=== PATIENT | female | born 1955 | race Caucasian/White ===

== ENCOUNTER 2019-10-09 10:13 | Observation (INO) | payer OTHER, SELFPAY ==
[2019-10-09] VITALS (7 sets, daily range): BP systolic 164–191; BP diastolic 74–101; PULSE 84–107; RESP 16–21; TEMP 36.4–36.9; O2SAT 94–98; BMI 35.6; BMI 45.6
--- NOTE | 2019-10-09 10:55 | RAD_ITS ---
STUDY: X-RAY - LEFT TIBIA AND FIBULA REASON FOR EXAM: Female, 63 years old. INFECTION TECHNIQUE: 2 view(s) of the tibia and fibula were obtained. COMPARISON: None. FINDINGS: Normal visualized tibia. Normal visualized fibula. The soft tissue structures are unremarkable, no subcutaneous emphysema noted.. RAD/Tibia & Fibula 2 Views IMPRESSION: Normal x-ray examination of the tibia and fibula. Electronically Signed: Yousuf Kennedy MD at 12:19 EST , Service support ,
--- NOTE | 2019-10-09 10:56 | ED.DCSUM_ITS ---
History of Present Illness Chief Complaint: Lower Extremity Injury Detail of Chief Complaint: Left leg infection Informant: Patient Onset: Days - 9 days Current Severity: Moderate Maximum Severity: Moderate Narrative: Patient presents with left leg swelling and skin sloughing. She states she noted a blisterlike lesion 9 days ago. It is progressed in size. She does have serosanguineous drainage. She states when she initially noticed the wound 9 days ago she also had GI symptoms including fever, nausea, vomiting, and diarrhea. Those symptoms seem to subside within 36 hours. She denies past medical history. She denies being diabetic. Past Medical History - Allergies and Home Meds Allergies/Adverse Reactions: Allergies alcohol Allergy (Verified 10/09/19 10:14) Hives Primary Care Physician: Sharad Guerra III, MD [Primary Care Provider] - Past Medical History: None Lives: Spouse/ Significant Other Smoking Status: Never smoker Review of Systems General: Reports: Fever Eyes: Denies: Visual changes - bilaterally ENT: Denies: Bilateral ear pain Cardiovascular: Denies: Chest pain Respiratory: Denies: Dyspnea Gastrointestinal: Denies: Abdominal pain, Nausea, Vomiting, Diarrhea Skin: Reports: Wounds Neurological: Denies: Headache, Weakness Hematologic: Denies: Easy bruising, Easy bleeding Allergy: Denies: Uticaria Physical Exam Vital Signs/Narrative: Vital Signs Temp Pulse Resp BP Pulse Ox 10/09/19 10:14 97.6 F L 107 H 17 164/95 H 96 Inital Vital Signs reviewed: Yes General: Well nourished, Well developed Head: Normocephalic ENT: Moist mucous membranes Neck: Supple Cardiovascular: Regular rate, Regular rhythm Respiratory: No distress, CTA bilaterally Abdomen: Soft, Nontender Skin: - - Left leg edema with skin sloughing circumferentially around the lower leg. Foot itself appears unremarkable. Strong distal pulses are noted. Neurological: Alert, Oriented x3 Psychological: Normal affect Diagnostic/Tx/Re-eval Impressions Tibia/Fibula X-Ray 10/09/19 10:55 IMPRESSION: Normal x-ray examination of the tibia and fibula. Electronically Signed: Yousuf Kennedy MD at 12:19 EST , Service support , 10/09/19 10:55 Tibia & Fibula 2 Views [RAD] Stat Laboratory Results 10/09/19 10/09/19 10/09/19 11:20 11:20 11:20 WBC 10.1 RBC 4.78 Hgb 14.4 Hct 43.4 MCV 90.8 MCH 30.1 MCHC 33.2 RDW Std Deviation 42.1 RDW Coeff of Agnieszka 12.7 Plt Count 387 MPV 8.7 Immature Gran % (Auto) 0.400 Neut % (Auto) 76.2 H Lymph % (Auto) 16.3 L [place] % (Auto) 6.1 Eos % (Auto) 0.9 Baso % (Auto) 0.1 Absolute Neuts (auto) 7.7 Absolute Lymphs (auto) 1.65 Nucleated RBC % 0 Sodium 141 Potassium 4.0 Chloride 107 Carbon Dioxide 27.0 Anion Gap 7 BUN 15 Creatinine 1.08 H Estim Creat Clear Calc 42.17 Est GFR (MDRD) Af Amer 66 Est GFR (MDRD) Non-Af 54 L BUN/Creatinine Ratio 13.9 Glucose 91 Lactic Acid 1.8 Calcium 9.5 - Medical Decision Making Patient was given Zosyn and vancomycin for skin infection on arrival. On repeat evaluation she is resting comfortably. Labs are reassuring at this time, however patient does have a large area of skin ulceration and sloughing. I do feel she should be at least observed overnight for antibiotics and appropriate wound care. I will speak with the hospitalist. ED Disposition - Plan for ED Patient: Disposition: Acute Care [facility] Diagnosis: Skin ulcer of left lower leg Referrals: Sharad Guerra III, MD [Primary Care Provider] -
[2019-10-09 11:38] LABS: Absolute Lymphocyte Count 1.65 X10^3/uL (0.83-4.51); Absolute Neutrophil Count 7.7 X10^3/uL (2.0-7.7); Basophil# 0.01 X10^3/uL; Basophil% 0.1 % (0-1); Eosinophil# 0.09 X10^3/uL; Eosinophils% 0.9 % (0-5); Hematocrit 43.4 % (37-47); Hemoglobin 14.4 g/dL (12.0-15.0); Lymphocyte # 1.65 X10^3/ul (4.0); Lymphocyte % 16.3 % (19-41); Mean Corp Hgb Conc 33.2 g/dL (32-36); Mean Corpuscular Hgb 30.1 pg (27.0-32.0); Mean Corpuscular Volume 90.8 fL (81-99); Mean Platelet Vol. 8.7 fl (6.2-12.0); Monocyte# 0.62 X10^3/uL; Monocyte% 6.1 % (0-10); NRBC Flagged by Analyzer 0 % (0-5); Neutrophil # 7.71 X10^3/uL (2.7-7.7); Neutrophil % 76.2 % (47-70); Platelet Count 387 K/mm3 (150-450); RBC Distribution Width CV 12.7 % (11.6-14.6); RBC Distribution Width SD 42.1 fl (35.1-43.9); Red Blood Count 4.78 M/mm3 (4.2-5.4); White Blood Count 10.1 K/mm3 (4.4-11.0)
[2019-10-09 11:50] LABS: Anion Gap 7 (5-15); BUN 15 mg/dL (7-18); BUN/Creat Ratio 13.9 RATIO (10-20); Calcium,Total 9.5 mg/dL (8.5-10.1); Chloride 107 mmol/L (98-107); Creatinine, Serum 1.08 mg/dL (0.55-1.02); EST Glomerular Filtration Rate 54 mL/min (>60); Est Glom Filt Rate - Afr Amer 66 mL/min (>60); Estimated Creatinine Clearance 42.17 ml/min; Glucose 91 mg/dL (74-106); Sodium Level 141 mmol/L (136-145)
[2019-10-09] MEDS: 0.9% Normal Saline 1,000 ML 150 ML IV ×2 (11:50→18:30)
[2019-10-09 12:09] LABS: Lactic Acid 1.8 mmol/L (0.4-1.9)
--- NOTE | 2019-10-09 13:09 | PCM.HP.STD ---
Problem List (1) Skin ulcer of left lower leg Status: Acute (2) BMI over 35 Status: Chronic History of Present Illness Date of Admission: 10/09/19 Chief Complaint: Blistering and ulceration involving the left lower extremity The patient is a 63 year old F in relatively good health who presented with blistering and ulceration involving the left lower extremity. Per patient her symptoms started a couple of days prior to admission. She was down with flulike symptoms and had nausea, vomiting diarrhea as well as subjective fever and chills. She did notice a blister involving the lateral aspect of her left lower extremity. This has since progressed resulting in ulceration circumferentially as well as some warmth and swelling. Was seen in the emergency department and assessment of cellulitis made admitted to regular nursing floor for further management. Past Medical History Past Medical History (Chronic Problems): Chronic Problems BMI over 35 (Chronic) Allergies alcohol Allergy (Verified 10/09/19 10:14) Hives Home Medications: Ambulatory Orders Medication Instructions Recorded NK 10/09/19 Lives: Spouse/ Significant Other Smoking Status: Never smoker - *Family History Maternal History Items: Heart Disease Paternal History Items: Heart Disease Review of Systems Constitutional: Reports: Fever. Denies: Anorexia, Chills, Night Sweats, Weight Change HEENT: Denies: Head Aches, Sinus Congestion, Sinus Drainage Cardiovascular: Denies: Chest Pain, Orthopnea, Palpitations, Paroxysmal Noc. Dyspnea Respiratory: Denies: Cough, Shortness of breath at rest, Shortness of breath upon exertion, Sputum production Gastrointestinal: Reports: Abdominal Pain, Diarrhea, Nausea, Vomiting. Denies: Hematemesis, Hematochezia, Melena Genitourinary: Denies: Dysuria, Frequency, Hematuria, Urgency Musculoskeletal: Denies: Joint Pain, Joint Tenderness Skin: Reports: Rash, Skin Changes Neurological: Denies: Focal weakness, Numbness, Tingling Psychiatric: Denies: Homicidal Ideations, Suicidal Ideations Hematologic/ Lymphatic: Denies: Easy Bruising, Easy Bleeding VTE Information - Inpt Only VTE Present on Admission: No VTE Mechan Device Prophylaxis: None VTE Pharm Prophylaxis ordered?: Yes Patient Problems: Active and Suspected Problems Skin ulcer of left lower leg (Acute) Objective: GENERAL: cooperative HEENT: Atraumatic; EYES; Anicteric, Normal Conjunctiva NECK; supple, normal thyroid, RESPIRATORY: Diminished to auscultation CARDIOVASCULAR: Regular S1 S2, GI: soft, normoactive bowel sounds, : No Renal angle tenderness; EXTREMITIES: ulceration circumferentially involving the distal third of the left lower extremity with surrounding areas of erythema and warmth MUSCULOSKELETAL: no muscle waisting NEURO: Awake; no lateralizing signs. SKIN: As described above PSYCH; Flat affect - Physical Exam Vitals/I&O's: Vital Signs Temp Pulse Resp BP Pulse Ox 97.6 F L 84 21 H 174/92 H 94 10/09/19 10:14 10/09/19 12:13 10/09/19 12:13 10/09/19 12:13 10/09/19 12:13 Oxygen Delivery Method Room Air Weight: 88.451 kg Body Mass Index (BMI) 35.6 Intake and Output for Last 24 Hours 10/07/19 10/08/19 10/09/19 23:59 23:59 23:59 Intake Total 100 / 100 Balance 100 / 100 Laboratory Results 10/09/19 11:20: WBC 10.1, RBC 4.78, Hgb 14.4, Hct 43.4, MCV 90.8, MCH 30.1, MCHC 33.2, RDW Std Deviation 42.1, RDW Coeff of Agnieszka 12.7, Plt Count 387, MPV 8.7, Immature Gran % (Auto) 0.400, Neut % (Auto) 76.2 H, Lymph % (Auto) 16.3 L, [place] % (Auto) 6.1, Eos % (Auto) 0.9, Baso % (Auto) 0.1, Absolute Neuts (auto) 7.7, Absolute Lymphs (auto) 1.65, Nucleated RBC % 0 10/09/19 11:20: Sodium 141, Potassium 4.0, Chloride 107, Carbon Dioxide 27.0, Anion Gap 7, BUN 15, Creatinine 1.08 H, Estim Creat Clear Calc 42.17, Est GFR (MDRD) Af Amer 66, Est GFR (MDRD) Non-Af 54 L, BUN/Creatinine Ratio 13.9, Glucose 91, Calcium 9.5 10/09/19 11:20: Lactic Acid 1.8 Current Medications Sodium Chloride () 1,000 mls @ 150 mls/hr IV .[id number] [facility] Last Admin: 10/09/19 11:50 Dose: 150 mls/hr Documented by: Assessment/Plan All Active Problems Skin ulcer of left lower leg (Acute) Patient is a 63-year-old lady presenting with ulceration, blistering and erythema and warmth involving the left lower extremity 1. Cellulitis involving the left lower extremity ?Patient admitted to regular nursing floor started on broad-spectrum antibiotic therapy vancomycin and Zosyn after cultures have been sent. Consult was also placed to infectious disease. Given the extent of patient ulceration consult was also placed to the wound care nurse 2. Recent acute viral gastroenteritis ?Resolved 3. Obesity with BMI of 35.7 ?Weight loss advised 4. DVT prophylaxis ~ on enoxaparin Code Visit Inpatient E&M: 55069 Init Hosp L2
--- NOTE | 2019-10-09 15:45 | PCM.RX.CS ---
Consult Pharmacy has been consulted to manage selected antiobiotic: Vancomycin Type of Consult: New start Suspected Infection: Skin/Soft tissue Prior Doses of Antibiotics Received/Current Regimen: Received 1250mg iv x 1 in ER. Labs: Sodium 141 mmol/L (136-145) 10/09/19 11:20 Potassium 4.0 mmol/L (3.5-5.1) 10/09/19 11:20 Chloride 107 mmol/L (98-107) 10/09/19 11:20 Carbon Dioxide 27.0 mmol/L (21.0-32.0) 10/09/19 11:20 Anion Gap 7 (5-15) 10/09/19 11:20 BUN 15 mg/dL (7-18) 10/09/19 11:20 Creatinine 1.08 mg/dL (0.55-1.02) H 10/09/19 11:20 Est GFR (MDRD) Af Amer 66 mL/min (>60) 10/09/19 11:20 Est GFR (MDRD) Non-Af 54 mL/min (>60) L 10/09/19 11:20 BUN/Creatinine Ratio 13.9 RATIO (10-20) 10/09/19 11:20 Glucose 91 mg/dL (74-106) 10/09/19 11:20 Weight used for dosin kg Estimated Creatinine Clearance: ~42ml/min Goal Trough: 15-20 mcg/mL Pharmacy Plan for Drug Dosing: Will begin 1gm iv q12h per pharmacokinetic protocol. Trough level ordered for 10.10.19. Pharmacy Service will continue to monitor and adjust dosing as required. Follow-Up Labs: Trough Vancomycin - 10.10.19 @2330 before 2400 dose
--- NOTE | 2019-10-09 16:13 | VDLE_ITS ---
Reason For Study: Swelling Procedure LEFT Exam performed portable in patient room. GSV is normal. Calf veins only visualized at prox due to CFV is compressible, spontaneous, phasic, bandage. competent, and demonstrates normal A preliminary report was called and/or faxed augmentation. to PCU. FV is compressible, spontaneous, phasic, competent and demonstrates normal augmentation. POP V is compressible, spontaneous, phasic, competent and demonstrates normal augmentation. T/P Trunk is compressible. PTV is compressible. LT PerV is compressible. Interpretation Summary Deep veins of the left lower extremity are patent and compressible segmentally. There is no evidence of left lower extremity deep vein thrombosis. Valvular competence appears intact within the proximal deep venous system on the left . The left great saphenous vein appears patent and compressible segmentally. Ordering Physician: Nino Pretty Referring Physician: DARBY Guerra M.D. Performed By: Marilin Lawrence RVT
--- NOTE | 2019-10-09 16:14 | CON.PCM_ITS ---
Problem List (1) Skin ulcer of left lower leg Status: Acute Reason for Consult: cellulitis Consulted by: Dr. Duncan History of Present Illness: The patient is a 63 year old F with minimal PMH, presented with 8-10 days of L gusman/calf redness, warm, and swelling. Sx started when she had GI illness with fever, n/v/d. Was in a chair for a day, and L gusman developed large blister which popped. Now with large open area, clear yellow drainage. No further fever or GI symptoms. No recent abx. No prior h/o skin infection or MRSA. Admitted from ED, on vanc/zosyn. Minimal pain. Full ROS performed and neg except as noted above. - Medical History Past Medical History (Chronic Problems): Chronic Problems BMI over 35 (Chronic) Allergies/Adverse Reactions: Allergies alcohol Allergy (Verified 10/09/19 10:14) Hives Home Medications: Ambulatory Orders Medication Instructions Recorded Multivitamin [Once Daily] 1 tab PO DAILY 10/09/19 Naproxen Sodium [Aleve] 220 mg PO BID PRN PRN 10/09/19 - Social History Tobacco Use: non-smoker Vital Signs Temp Pulse Resp BP Pulse Ox 98.3 F 84 16 191/101 H 98 10/09/19 14:06 10/09/19 14:06 10/09/19 14:06 10/09/19 14:06 10/09/19 14:50 Oxygen Delivery Method Room Air Weight: 113 kg Body Mass Index (BMI) 45.6 Laboratory Tests Past 24 Hrs 10/09/19 10/09/19 10/09/19 11:20 11:20 11:20 WBC 10.1 RBC 4.78 Hgb 14.4 Hct 43.4 MCV 90.8 MCH 30.1 MCHC 33.2 RDW Std Deviation 42.1 RDW Coeff of Agnieszka 12.7 Plt Count 387 MPV 8.7 Immature Gran % (Auto) 0.400 Neut % (Auto) 76.2 H Lymph % (Auto) 16.3 L [place] % (Auto) 6.1 Eos % (Auto) 0.9 Baso % (Auto) 0.1 Absolute Neuts (auto) 7.7 Absolute Lymphs (auto) 1.65 Nucleated RBC % 0 Sodium 141 Potassium 4.0 Chloride 107 Carbon Dioxide 27.0 Anion Gap 7 BUN 15 Creatinine 1.08 H Estim Creat Clear Calc 42.17 Est GFR (MDRD) Af Amer 66 Est GFR (MDRD) Non-Af 54 L BUN/Creatinine Ratio 13.9 Glucose 91 Lactic Acid 1.8 Calcium 9.5 S.aureus Protein A PCR MRSA (PCR) 10/09/19 14:50 WBC RBC Hgb Hct MCV MCH MCHC RDW Std Deviation RDW Coeff of Agnieszka Plt Count MPV Immature Gran % (Auto) Neut % (Auto) Lymph % (Auto) [place] % (Auto) Eos % (Auto) Baso % (Auto) Absolute Neuts (auto) Absolute Lymphs (auto) Nucleated RBC % Sodium Potassium Chloride Carbon Dioxide Anion Gap BUN Creatinine Estim Creat Clear Calc Est GFR (MDRD) Af Amer Est GFR (MDRD) Non-Af BUN/Creatinine Ratio Glucose Lactic Acid Calcium S.aureus Protein A PCR Pending MRSA (PCR) Pending - Other Studies Radiology: [] reviewed Other Studies: [] Route of nutrition/ use of supplements: [] Nutritional Intake: [] IV Site: [] Jimenez Catheter: [] - Physical Exam General: Alert, Oriented x3, Cooperative, No apparent distress HEENT: Atraumatic, PERRLA, EOMI Neck: Supple, No Nodes Lungs: Clear to auscultation, Normal air movement Cardiovascular: Regular rate, Regular Rhythm, No murmurs Abdomen: Soft, Non Tender, Non-Distended Extremities: Edema Skin: Ulcer/ Wound - large shallow wound on L gusman, serous drainage. Surrounding warmth and erythema. IV Site: Peripheral, without redness Musculoskeletal: No Tenderness to Palpation of Joints or Extremities Neurological: Cranial nerves II-XII grossly intact - Assessment/Plan Antibiotics: [] Assessment/Plan: [] Active and Suspected Problems Skin ulcer of left lower leg (Acute) Surrounding cellulitis after large bulla formation. Wound cx and mrsa pcr pending. No fever, no pain, no leukocytosis. Will order venous doppler. Appe ars to be doing well clinically, would benefit from wound care as an outpt. Narrow abx to cefazolin, plan on short course of po at discharge. Will follow, thank you.
[2019-10-09 17:05] LABS: M R Staph aureus DNA By PCR Negative (Negative); Probe Check PASS; Specimen Processing Control PASS; Staph aureus DNA By PCR POSITIVE (Negative)
[2019-10-09] MEDS: Cefazolin 1 GM/50 ML BAG IV (21:45)
[2019-10-10] MEDS: 0.9% Normal Saline 1,000 ML 150 ML IV (01:33)
[2019-10-10] MEDS: Acetaminophen 325 MG Tablet 650 MG PO ×2 (01:47→13:50)
[2019-10-10 01:51] VITALS: BP 160/84; PULSE 96; RESP 18; TEMP 37.1; O2SAT 94
[2019-10-10] MEDS: Cefazolin 1 GM/50 ML BAG IV ×3 (06:10→22:57)
[2019-10-10 07:38] LABS: Absolute Lymphocyte Count 1.76 X10^3/uL (0.83-4.51); Absolute Neutrophil Count 5.9 X10^3/uL (2.0-7.7); Basophil# 0.01 X10^3/uL; Basophil% 0.1 % (0-1); Eosinophil# 0.13 X10^3/uL; Eosinophils% 1.5 % (0-5); Hematocrit 37.1 % (37-47); Hemoglobin 12.3 g/dL (12.0-15.0); Lymphocyte # 1.76 X10^3/ul (4.0); Mean Corp Hgb Conc 33.2 g/dL (32-36); Mean Corpuscular Hgb 30.8 pg (27.0-32.0); Mean Corpuscular Volume 92.8 fL (81-99); Mean Platelet Vol. 8.2 fl (6.2-12.0); Monocyte# 0.59 X10^3/uL; NRBC Flagged by Analyzer 0 % (0-5); Neutrophil # 5.87 X10^3/uL (2.7-7.7); Platelet Count 283 K/mm3 (150-450); RBC Distribution Width CV 12.7 % (11.6-14.6); RBC Distribution Width SD 43.2 fl (35.1-43.9); White Blood Count 8.4 K/mm3 (4.4-11.0)
[2019-10-10 07:49] LABS: Anion Gap 3 (5-15); BUN 10 mg/dL (7-18); BUN/Creat Ratio 11.5 RATIO (10-20); Calcium,Total 8.5 mg/dL (8.5-10.1); Chloride 112 mmol/L (98-107); Creatinine, Serum 0.87 mg/dL (0.55-1.02); EST Glomerular Filtration Rate 70 mL/min (>60); Est Glom Filt Rate - Afr Amer 85 mL/min (>60); Estimated Creatinine Clearance 52.35 ml/min; Glucose 106 mg/dL (74-106); Sodium Level 144 mmol/L (136-145)
[2019-10-10 07:58] VITALS: O2SAT 97
[2019-10-10 08:13] VITALS: BP 190/82; PULSE 83; RESP 18; TEMP 36.8; O2SAT 95
[2019-10-10] MEDS: Enoxaparin 40 MG/0.4 ML Syringe SC (09:39)
--- NOTE | 2019-10-10 10:45 | PN_ITS ---
Patient Problems: Active and Suspected Problems Skin ulcer of left lower leg (Acute) Reason for Visit: Follow-up left lower extremity cellulitis Subjective: Patient is a 63-year-old lady presenting with ulceration, blistering and erythema and warmth involving the left lower extremity Patient MRSA PCR came back negative she was however positive for staph. Seen in consultation by Dr. Pretty with ID recommended de-escalating antibiotics to cefazolin. Objective: GENERAL: cooperative HEENT: Atraumatic; EYES; Anicteric, Normal Conjunctiva NECK; supple, normal thyroid, RESPIRATORY: Diminished to auscultation CARDIOVASCULAR: Regular S1 S2, GI: soft, normoactive bowel sounds, : No Renal angle tenderness; EXTREMITIES: ulceration circumferentially involving the distal third of the left lower extremity with surrounding areas of erythema and warmth MUSCULOSKELETAL: no muscle waisting NEURO: Awake; no lateralizing signs. SKIN: As described above PSYCH; Flat affect Vitals/I&O's: Vital Signs Temp Pulse Resp BP Pulse Ox 98.3 F 83 18 190/82 H 95 10/10/19 08:13 10/10/19 08:13 10/10/19 08:13 10/10/19 08:13 10/10/19 08:13 Oxygen Delivery Method Room Air Weight: 113 kg Body Mass Index (BMI) 45.6 Intake and Output for Last 24 Hours 10/08/19 10/09/19 10/10/19 23:59 23:59 23:59 Intake Total 1665 / 1665 1742.5 / 1742.5 Balance 1665 / 1665 1742.5 / 1742.5 Laboratory Results 10/09/19 11:20: WBC 10.1, RBC 4.78, Hgb 14.4, Hct 43.4, MCV 90.8, MCH 30.1, MCHC 33.2, RDW Std Deviation 42.1, RDW Coeff of Agnieszka 12.7, Plt Count 387, MPV 8.7, Immature Gran % (Auto) 0.400, Neut % (Auto) 76.2 H, Lymph % (Auto) 16.3 L, [place] % (Auto) 6.1, Eos % (Auto) 0.9, Baso % (Auto) 0.1, Absolute Neuts (auto) 7.7, Absolute Lymphs (auto) 1.65, Nucleated RBC % 0 10/09/19 11:20: Sodium 141, Potassium 4.0, Chloride 107, Carbon Dioxide 27.0, Anion Gap 7, BUN 15, Creatinine 1.08 H, Estim Creat Clear Calc 42.17, Est GFR (MDRD) Af Amer 66, Est GFR (MDRD) Non-Af 54 L, BUN/Creatinine Ratio 13.9, Glucose 91, Calcium 9.5 10/09/19 11:20: Lactic Acid 1.8 10/09/19 14:50: S.aureus Protein A PCR POSITIVE H, MRSA (PCR) Negative 10/10/19 07:25: WBC 8.4, RBC 4.00 L, Hgb 12.3, Hct 37.1, MCV 92.8, MCH 30.8, MCHC 33.2, RDW Std Deviation 43.2, RDW Coeff of Agnieszka 12.7, Plt Count 283, MPV 8.2, Immature Gran % (Auto) 0.400, Neut % (Auto) 70.0, Lymph % (Auto) 21.0, [place] % (Auto) 7.0, Eos % (Auto) 1.5, Baso % (Auto) 0.1, Absolute Neuts (auto) 5.9, Absolute Lymphs (auto) 1.76, Nucleated RBC % 0 10/10/19 07:25: Sodium 144, Potassium 4.0, Chloride 112 H, Carbon Dioxide 29.0, Anion Gap 3 L, BUN 10, Creatinine 0.87, Estim Creat Clear Calc 52.35, Est GFR (MDRD) Af Amer 85, Est GFR (MDRD) Non-Af 70, BUN/Creatinine Ratio 11.5, Glucose 106, Calcium 8.5 Current Medications Acetaminophen (Tylenol) 650 mg PO Q6H PRN PRN PRN Reason: Pain Score 1-3/Temp > 100.7 F Last Admin: 10/10/19 01:47 Dose: 650 mg Documented by: Al Hydroxide/Mg Hydroxide (Mylanta Ii) 30 ml PO Q6H PRN PRN PRN Reason: Gastric Burning Enoxaparin Sodium (Lovenox) 40 mg SC DAILY REMY Last Admin: 10/10/19 09:39 Dose: 40 mg Documented by: Sodium Chloride () 250 mls @ 15 mls/hr IV .[id number] PRN PRN Reason: Saline Flush Cefazolin Sodium () 1 gm in 50 mls @ 100 mls/hr IV Q8 REMY Last Infusion: 10/10/19 06:40 Dose: Infused Documented by: Labetalol HCl (Trandate) 10 mg IV Q4H PRN PRN PRN Reason: SBP > 160 Last Admin: 10/10/19 09:39 Dose: 10 mg Documented by: Magnesium Hydroxide (Milk Of Magnesia) 30 ml PO DAILY PRN PRN PRN Reason: Constipation Melatonin (Melatonin) 3 mg PO QHS PRN PRN PRN Reason: INSOMNIA Nutritional Formula (Lactose Free) (Ensure Enlive) 120 ml PO 4X/DAY REMY Last Admin: 10/10/19 09:39 Dose: Not Given Documented by: Ondansetron HCl (Zofran) 4 mg IV Q8H PRN PRN PRN Reason: NAUSEA/VOMITING Oxycodone HCl (Oxyir) 5 mg PO Q4H PRN PRN PRN Reason: Pain Score 4-5/10 Oxycodone HCl (Oxyir) 10 mg PO Q4H PRN PRN PRN Reason: Pain Score 6-10/10 Promethazine HCl (Phenergan) 25 mg IM Q6H PRN PRN PRN Reason: Breakthrough nausea/vomiting Sodium Chloride () 10 - 40 ml IV UD PRN PRN Reason: SALINE FLUSH STROKE Vital Signs/Narrative: Vital Signs Temp Pulse Resp BP Pulse Ox 10/10/19 08:13 98.3 F 83 18 190/82 H 95 10/10/19 07:58 97 Medical Necessity - Tobacco Use Smoking Status: Never smoker Assessment/Plan All Active Problems Skin ulcer of left lower leg (Acute) Patient is a 63-year-old lady presenting with ulceration, blistering and erythema and warmth involving the left lower extremity 1. Cellulitis involving the left lower extremity ?Patient admitted to regular nursing floor started on broad-spectrum antibiotic therapy vancomycin and Zosyn after cultures have been sent. Consult was also placed to infectious disease. Given the extent of patient ulceration consult was also placed to the wound care nurse ?10/10/2019Patient MRSA PCR came back negative she was however positive for staph. Seen in consultation by Dr. Pretty with ID recommended de-escalating antibiotics to cefazolin. Bilateral venous duplex obtained came back negative for DVT. Patient yet to be evaluated by wound care. 2. Recent acute viral gastroenteritis ?Resolved 3. Obesity with BMI of 35.7 ?Weight loss advised 4. DVT prophylaxis ~ on enoxaparin Code Visit Inpatient E&M: 68508 Subs Hosp L2
--- NOTE | 2019-10-10 11:46 | NURSING ---
wound photo: left lower leg
--- NOTE | 2019-10-10 11:48 | NURSING ---
wound photo: left lower leg (medial view)
[2019-10-10] MEDS: 0.9% Saline Lock 10 ML Syringe IV (13:43)
[2019-10-10 13:51] VITALS: BP 166/76; PULSE 84; RESP 18; TEMP 37.4; O2SAT 97
--- NOTE | 2019-10-10 14:40 | CASEMGMT ---
RN CM FLORIST HELPER CM to room to meet with patient for initial transition planning/care coordination assessment. RN ADRIANE introduced self and role at [facility]. Pt voices understanding and consents to assessment at this time. Pt resting in bed in no distress at this time. @ bedside. Pt is A/O at this time and answers all questions appropriately. Care providers, pharmacy, and demographics verified/updated at this time. PCP: Dr Peter Guerra Specialists: None Preferred Pharmacy: [facility] Insurance: [facility] Prescription Benefit: [employer] Living Will/HPOA: Has both LW and Healthcare POA, who is her , Guillermo. LNOK: . Living Arrangements: Lives with her in 2 story home w/basement. Able to navigate the stairs well with her cane. States is independent w/ADL's. and pt share home mgmt tasks. is supportive and able to help as needed. Transportation: Pt states drives self and states no transportation concerns at this time. will drive pt home @ discharge. DME: States has the following DME: cane, rails/grab bars. Recently put in a walk-in shower. Denies needs of shower chair at this time. Pt states no need for further DME at this time. HHC/SNF: No history of either, denies needs, and no needs identified. Pt wishes to return home and states has no concerns with going home at time of discharge. CM to follow for any discharge planning/needs. Pt/ voices no concerns/needs at this time. Advised them to ask for CM if any questions/concerns/needs arise. They voice understanding. PLAN: Home w/spousal support and discharge plans in place. states is willing/able to learn how to do dressing changes. Timmy LEBRONN KERI FORREST
[2019-10-10 16:48] VITALS: BP 156/85; PULSE 78; RESP 16; TEMP 37.4; O2SAT 96
[2019-10-10 22:45] VITALS: BP 160/87; PULSE 84; RESP 18; TEMP 36.9; O2SAT 97
[2019-10-11] MEDS: Acetaminophen 325 MG Tablet 650 MG PO (03:15)
[2019-10-11 04:12] VITALS: BP 180/88; PULSE 80; RESP 18; TEMP 36.9; O2SAT 97
[2019-10-11] MEDS: Cefazolin 1 GM/50 ML BAG IV (05:26)
[2019-10-11 05:30] VITALS: BP 171/83; PULSE 72; RESP 18; TEMP 37.1; O2SAT 96
[2019-10-11 07:54] VITALS: BP 189/84; PULSE 80; RESP 18; TEMP 36.8; O2SAT 97
[2019-10-11 07:56] VITALS: O2SAT 96
--- NOTE | 2019-10-11 10:02 | PCM.DC ---
- Discharge Diagnoses Current Active Problems: Current Active and Chronic Problems Skin ulcer of left lower leg (Acute) BMI over 35 (Chronic) You will use the following diet at home:: No restrictions Your food should be the consistency of: Regular Discharge Activity: Return to Normal Activity Allergies/Adverse Reactions: Allergies alcohol Allergy (Verified 10/09/19 10:14) Hives Medications to take at Discharge Multivitamin [Once Daily] 1 tab PO DAILY 10/09/19 Naproxen Sodium [Aleve] 220 mg PO BID PRN PRN 10/09/19 Cephalexin [Keflex] 500 mg PO TID #21 cap 10/11/19 The following prescriptions were given: Cephalexin [Keflex] 500 mg PO TID #21 cap Transmission Status: Pending to [facility] Primary Care Physician: Sharad Guerra III, MD [Primary Care Provider] - Please follow up with your Primary Care Physician in: IN 1 WEEK Test Results: Test results from this visit will be discussed in further detail at your follow-up appointment, if applicable. Please Follow Up With: Clinic,Wound When: ON 10/12/2019 FOR DRESSING CHANGES Proposed Discharge Date: 10/11/19
--- NOTE | 2019-10-11 10:04 | PCM.DC.SUM ---
Discharge Date and Diagnosis - Problem List Patient Problems: Active and Suspected Problems Cellulitis (Acute) Skin ulcer of left lower leg (Acute) Date of Admission: 10/09/19 Date of Discharge: 10/11/19 - Primary Discharge Diagnosis Active and Suspected Problems Cellulitis (Acute) Skin ulcer of left lower leg (Acute) - Secondary Discharge Diagnosis Chronic Problems BMI over 35 (Chronic) Hospital Course and Treatment Consultations 10/09/19 13:54 Consult: Onc/Wound/respiratory assistant Routine Comment: Summary of Care Provided: Patient is a 63-year-old lady presenting with ulceration, blistering and erythema and warmth involving the left lower extremity 1. Cellulitis involving the left lower extremity ?Patient admitted to regular nursing floor started on broad-spectrum antibiotic therapy vancomycin and Zosyn after cultures have been sent. Consult was also placed to infectious disease. Given the extent of patient ulceration consult was also placed to the wound care nurse ?10/10/2019Patient MRSA PCR came back negative she was however positive for staph. Seen in consultation by Dr. Pretty with ID recommended de-escalating antibiotics to cefazolin. Bilateral venous duplex obtained came back negative for DVT. Patient yet to be evaluated by wound care. 10/11/2019; patient was discharged home on Keflex she was also instructed to follow-up with wound care center for dressing changes. 2. Recent acute viral gastroenteritis ?Resolved 3. Obesity with BMI of 35.7 ?Weight loss advised 4. DVT prophylaxis ~ on enoxaparin Patient Problems: Active and Suspected Problems Cellulitis (Acute) Skin ulcer of left lower leg (Acute) Objective: GENERAL: cooperative HEENT: Atraumatic; EYES; Anicteric, Normal Conjunctiva NECK; supple, normal thyroid, RESPIRATORY: Diminished to auscultation CARDIOVASCULAR: Regular S1 S2, GI: soft, normoactive bowel sounds, PSYCH; Flat affect - Physical Exam Vitals/I&O's: Vital Signs Temp Pulse Resp BP Pulse Ox 98.3 F 80 18 189/84 H 97 10/11/19 07:54 10/11/19 07:54 10/11/19 07:54 10/11/19 07:54 10/11/19 07:54 Oxygen Delivery Method Room Air Weight: 113 kg Body Mass Index (BMI) 45.6 Intake and Output for Last 24 Hours 10/09/19 10/10/19 10/11/19 23:59 23:59 23:59 Intake Total 1665 / 1665 3050.0 / 3050.0 510 / 510 Balance 1665 / 1665 3050.0 / 3050.0 510 / 510 Microbiology Past 72 Hours 10/09/19 11:30 Blood Culture (Wb) - Anticubital Right Blood Culture - Preliminary No growth in 48 hours. 10/09/19 11:20 Blood Culture (Wb) - Anticubital Left Blood Culture - Preliminary No growth in 48 hours. 10/10/19 04:10 Wound - Leg Gram Stain - Final Current Medications Acetaminophen (Tylenol) 650 mg PO Q6H PRN PRN PRN Reason: Pain Score 1-3/Temp > 100.7 F Last Admin: 10/11/19 03:15 Dose: 650 mg Documented by: Al Hydroxide/Mg Hydroxide (Mylanta Ii) 30 ml PO Q6H PRN PRN PRN Reason: Gastric Burning Enoxaparin Sodium (Lovenox) 40 mg SC DAILY [facility] Last Admin: 10/10/19 09:39 Dose: 40 mg Documented by: Sodium Chloride () 250 mls @ 15 mls/hr IV .[id number] PRN PRN Reason: Saline Flush Cefazolin Sodium () 1 gm in 50 mls @ 100 mls/hr IV Q8 [facility] Last Infusion: 10/11/19 05:56 Dose: Infused Documented by: Labetalol HCl (Trandate) 10 mg IV Q4H PRN PRN PRN Reason: SBP > 160 Last Admin: 10/11/19 04:24 Dose: 10 mg Documented by: Magnesium Hydroxide (Milk Of Magnesia) 30 ml PO DAILY PRN PRN PRN Reason: Constipation Melatonin (Melatonin) 3 mg PO QHS PRN PRN PRN Reason: INSOMNIA Ondansetron HCl (Zofran) 4 mg IV Q8H PRN PRN PRN Reason: NAUSEA/VOMITING Oxycodone HCl (Oxyir) 5 mg PO Q4H PRN PRN PRN Reason: Pain Score 4-5/10 Oxycodone HCl (Oxyir) 10 mg PO Q4H PRN PRN PRN Reason: Pain Score 6-10/10 Promethazine HCl (Phenergan) 25 mg IM Q6H PRN PRN PRN Reason: Breakthrough nausea/vomiting Sodium Chloride () 10 - 40 ml IV UD PRN PRN Reason: SALINE FLUSH Last Admin: 10/10/19 13:43 Dose: 10 ml Documented by: Discharge Diet: No Restrictions Discharge Activity: Return to Normal Activity Home Medications: Medications to take at Discharge Multivitamin [Once Daily] 1 tab PO DAILY 10/09/19 Naproxen Sodium [Aleve] 220 mg PO BID PRN PRN 10/09/19 Cephalexin [Keflex] 500 mg PO TID #21 cap 10/11/19 Following Prescrptions Were Given to Patient: Cephalexin [Keflex] 500 mg PO TID #21 cap Transmission Status: Pending to [facility] Primary Care Physician: Sharad Guerra III, MD [Primary Care Provider] - Please follow up with your Primary Care Physician in: IN 1 WEEK Please Follow Up With: Clinic,Wound When: ON 10/12/2019 FOR DRESSING CHANGES Medical Necessity - Tobacco Use Smoking Status: Never smoker Meaningful Use Info Meaningful Use Diagnoses (Choose all that apply): None applicable Code Visit Inpatient E&M: 80967 Disch Hosp
[2019-10-11 11:00] VITALS: BP 160/80
[2019-10-11 11:15] VITALS: BP 160/80; PULSE 80; RESP 18; TEMP 36.8; O2SAT 97
== END 2019-10-11 11:10 | disposition home or self-care (01) | DRG 603 ==
LOC: ED 12:51 → PCU 10-10 06:04
PROVIDERS: Admitting Provider Internal Medicine; Emergency Provider Emergency Medicine; Family Provider Family Medicine; PCP Family Medicine; Referring Provider Internal Medicine; Visit Provider Internal Medicine
DX: L03.116 Cellulitis of left lower limb (principal); Z68.42 Body mass index [BMI] 45.0-49.9, adult; L97.929 Non-pressure chronic ulcer of unspecified part of left lower leg with unspecified severity; E66.9 Obesity, unspecified; Z87.19 Personal history of other diseases of the digestive system; Z23 Encounter for immunization; B95.61 Methicillin susceptible Staphylococcus aureus infection as the cause of diseases classified elsewhere
CPT/HCPCS: 36415; 73590; 80048; 83605; 85025; 87040; 87070; 87077; 87186; 87205; 87640; 93971; 96361; 96365; 96366; 96367; 96372; 96375; 96376; 97802; 99218; 99251; 99285; J7030; 90686; A4216; G0378; G0463

== ENCOUNTER 2019-10-31 14:30 | Outpatient (RCR) | payer OTHER, SELFPAY ==
[2019-10-09 14:06] VITALS: BMI 45.6
[2019-10-17 14:49] VITALS: BP 197/82; PULSE 111; RESP 16; TEMP 37.1; BMI 44.8
--- NOTE | 2019-10-17 17:17 | HP.PCM_ITS ---
(1) Excoriation of left lower leg Status: Acute Current Visit: Yes Code(s): S80.812A - Abrasion, left lower leg, initial encounter (2) Cellulitis Status: Acute Current Visit: No Qualifiers: Site of cellulitis: extremity Site of cellulitis of extremity: lower extremity Laterality: left Qualified Code(s): L03.116 - Cellulitis of left lower limb Code(s): L03.90 - Cellulitis, unspecified (3) Skin ulcer of left lower leg Status: Resolved Current Visit: No Code(s): L97.929 - Non-pressure chronic ulcer of unspecified part of left lower leg with unspecified severity (4) Bilateral lower extremity edema Status: Chronic Current Visit: Yes Code(s): R60.0 - Localized edema (5) Wound of left foot Status: Resolved Current Visit: No Code(s): S91.302A - Unspecified open wound, left foot, initial encounter History of Present Illness Date of Service: 10/17/19 Chief Complaint: cellulitis and ulcer of left lower leg History of Wound: Patient is a pleasant 63-year-old female who [facility]2019 with her for initial evaluation of left lower extremity swelling and ulceration. Patient presented to the emergency room on 10/09/2019 with complaints of left lower extremity swelling and redness. Patient reports that around 09/30/2019 she developed redness, swelling, and blisterlike lesions on her left lower leg, which were becoming bigger in size. At the time of her emergency room evaluation, she had serosanguineous drainage from her left leg. She also noted that at the time of onset around 09/30/2019 she had symptoms of nausea, vomiting, and diarrhea, as well as fever. The symptoms resolved within 36 hours of onset. Her had recently suffered a GI virus prior to her developing these GI symptoms, and she is unsure if they were related to her left lower extremity symptoms. She was admitted for cellulitis, and was discovered to have a small wound on her right foot, which was believed to be the source of infection. Patient was initially started on broad-spectrum antibiotic therapy with vancomycin and Zosyn. During the course of her admission, patient received wound cultures which were negative for MRSA but positive for staph. Infectious disease (Dr. Pretty) was consulted and antibiotics were changed to cefazolin. Bilateral venous duplex ultrasounds were also obtained which were negative for DVT. Patient was discharged from hospital with oral Keflex prescription, which is nearly completed. She has been applying Xeroform gauze to her left lower extremity ulcers daily, and wrapping with ELIA bandage. The patient denies any recurrence of fever, chills, nausea, vomiting, or diarrhea. Denies any signs of infection, including increasing pain, redness, swelling, or purulent/foul-smelling drainage from affected area. Patient states the erythema and swelling of her left lower extremity has greatly improved and is no longer affecting left foot. Patient denies any other significant medical history. Past Medical History Past Medical History: Chronic Problems Bilateral lower extremity edema (Chronic) BMI over 35 (Chronic) Allergies/Adverse Reactions: Allergies alcohol Allergy (Verified 10/17/19 15:18) Hives Home Medications: Ambulatory Orders Medication Instructions Recorded Multivitamin [Once Daily] 1 tab PO DAILY 10/09/19 Naproxen Sodium [Aleve] 220 mg PO BID PRN PRN 10/09/19 Cephalexin [Keflex] 500 mg PO TID #21 cap 10/11/19 - Family History Maternal Heart Disease Paternal Heart Disease Smoking Status: Former smoker Review of Systems Constitutional: Denies: Chills, Fever, Weight Change Eyes: Denies: Pain, Vision Change HEENT: Denies: Difficulty Hearing, Difficulty Swallowing, Sinus Congestion Cardiovascular: Reports: Edema - Chronic intermittent swelling of bilateral lower extremities with prolonged standing or ambulation. Denies: Chest Pain, Palpitations Respiratory: Denies: Cough, Shortness of Breath, Wheezing Gastrointestinal: Denies: Diarrhea, Nausea, Vomiting Genitourinary: Denies: Dysuria, Hematuria Musculoskeletal: Reports: Leg Pain - Left lower extremity Skin: Reports: Skin Changes - Left lower extremity, Wounds - Left foot wound, healed. Ulcerations of left lower extremity Neurological: Denies: Blurred vision, Slurred speech, Confusion, Focal weakness Endocrine: Denies: Heat/ Cold Intolerance, Polydipsia, Polyuria Hematologic/ Lymphatic: Denies: Easy Bruising, Easy Bleeding - Physical Exam Vital Signs Temp Pulse Resp BP 98.7 F 111 H 16 197/82 H 10/17/19 14:49 10/17/19 14:49 10/17/19 14:49 10/17/19 14:49 General: Alert, Oriented x3, Cooperative, No apparent distress HEENT: Atraumatic, EOMI, Normocephalic Oral: Moist Mucosa Neck: Supple, No JVD, Trachea Midline Lungs: Clear to auscultation, Normal air movement, No rhonchi, No wheeze, No rales Cardiovascular: Regular rate, Regular Rhythm Abdomen: Bowel Sounds Present, Soft, Non Tender, Obese Extremities: No clubbing, No cyanosis, Capillary Refill Less than 3 Seconds, Diminished Peripheral Pulses, Edema - 2+ bitting edema of left lower extremity; trace edema of right lower extremity, Tenderness - Left lower extremity tender to palpation Skin: Ulcer/ Wound - Left plantar foot wound healed., Excoriated - Left lower extremity excoriated with erythema and swelling. Warm to touch. No open wounds or ulcerations present. Small to moderate amount of serous drainage present. Tender to palpation of left lower extremity. Wound Measurements and Assessment WC - Nurse 1 - General Ulcer Measurement Start: 10/17/19 14:49 Freq: Status: Active Protocol: Activity Type Activity Date Activity User E-Sign Co-Sign Detail Recorded Client Recorded Date Recorded By Document 10/17/19 14:49 [facility] [id number] 10/17/19 15:10 [facility] 10/17/19 14:49 Wound Center Nurse 1 [Ulcer Assessment] #1 LLE Circ -Current Size (cm) - Length 16.1 -Current Size (cm) - Width 35 -Current Size (cm) - Depth 0.1 -Total Square Cm 563.5 -Photo Taken Yes -Classification - Thickness Partial Thickness -Exudate Amt Medium -Exudate Type Serosanguineous -Wound Margin Indistinct, Non -Visible -Granulation Amt Medium (34-66%) -Granulation Quality [place] -Necrosis Amt Medium (34-66%) -Necrotic Tissue Type Adherent Slough -Structure Exposed N/A -Texture (Olga-wound Skin Appearance) Localized Edema ,Scarring -Moisture (Olga-wound Skin Appearance Weeping ) -Color (Olga-wound Skin Appearance) Hemosiderin Staining -Temperature (Olga-wound Skin No Abnormality Appearance) (Pt Warm) -Tenderness on Palpation (Olga-wound No Skin Appearance) -Ulcer Cleansing Wound Cleanser -Foul Odor after Cleansing No -Anesthetic Used 4% Lidocaine Solution [Edema Assessment] -Right Calf (cm) 47.1 -Right Ankle (cm) 27.5 -Left Calf (cm) 51.7 -Left Ankle (cm) 28.1 - Nurse 2 - General Ulcer CM Notes Start: 10/17/19 14:49 Freq: Status: Active Protocol: Activity Type Activity Date Activity User E-Sign Co-Sign Detail Recorded Client Recorded Date Recorded By Document 10/17/19 15:57 DV [id number] 10/17/19 16:11 DV 10/17/19 15:57 Wound Center Nurse 2 [Procedure/Treatment] #1 LLE Circ -Time 16:00 -Correct Patient Yes -Correct Side, Site, Position Yes -Correct Procedure No -Procedure Performed No -Wound/Ulcer Outcome Not Healed -Ulcer Cleansing Rinsed/ Irrigated with Saline -Bleeding Controlled with Pressure -Offloading No -Treatment Response Procedure Tolerated Well [See Physician Procedure note for Specifics] Pain Scale: 0-10 Numeric [Pain] -Is Patient Pain Free? Yes Musculoskeletal: Tenderness - To palpation of left lower extremity Neurological: Neuro grossly intact Psych/Mental Status: Normal Affect, Appropriate Debridement Note Post-Debridement Measurements/Treatment - Nurse 2 - General Ulcer CM Notes Start: 10/17/19 14:49 Freq: Status: Active Protocol: Activity Type Activity Date Activity User E-Sign Co-Sign Detail Recorded Client Recorded Date Recorded By Document 10/17/19 15:57 DV [id number] 10/17/19 16:11 DV 10/17/19 15:57 Wound Center Nurse 2 #1 LLE Circ -Time 16:00 -Correct Patient Yes -Correct Side, Site, Position Yes -Correct Procedure No -Procedure Performed No -Wound/Ulcer Outcome Not Healed -Ulcer Cleansing Rinsed/ Irrigated with Saline -Bleeding Controlled with Pressure -Offloading No -Treatment Response Procedure Tolerated Well Pain Scale: 0-10 Numeric Is Patient Pain Free? Yes Assessment/Plan Active Problems Excoriation of left lower leg (Acute) Bilateral lower extremity edema (Chronic) Assessment: Excoriation of left lower leg. Cellulitis of left lower leg?improving. Skin ulcer of left lower leg?resolved. Bilateral lower extremity edema. Left plantar foot wound- resolved Plan: No debridement performed today in clinic due to absence of any open wounds. Unna boot applied to left lower extremity. At home wound-care instructions: Instructed to keep the Unna boot clean and dry. Contact the wound center if you are experiencing any complications from Unna boot, if you develop numbness, tingling, or discoloration of toes of left foot, or if redness extends above the Unna boot. Off-loading: Keep feet elevated at or above waist level when seated as much as possible. Avoid prolonged standing or dangling of feet. Diet: Patient encouraged to increase protein and vitamin C intake while taking caution to avoid high carbohydrate and/or sugar intake. Labs/cultures/imaging: Labs from hospital admission reviewed. Venous and arterial studies ordered today. Complete remaining course of antibiotics (Keflex). Follow-up: Return to [facility] on 10/20/2018 for a nurse visit to have Unna boot removed and reapplied if necessary. Return to clinic in 1 week for re-evaluation with provider. Return sooner or report to the emergency room should symptoms worsen, or new symptoms arise. Code Visit Office Visits / Consults: [id number] OV L4 Est
[2019-10-20 12:19] VITALS: BP 215/96; PULSE 97; RESP 22; TEMP 36.6; BMI 44.8
[2019-10-24 14:47] VITALS: BP 153/88; PULSE 88; RESP 18; TEMP 36.4; BMI 44.8
--- NOTE | 2019-10-25 12:23 | PN.PCM_ITS ---
(1) Excoriation of left lower leg Status: Acute Current Visit: Yes Qualifiers: Encounter type: subsequent encounter Qualified Code(s): S80.812D - Abrasion, left lower leg, subsequent encounter Code(s): S80.812A - Abrasion, left lower leg, initial encounter (2) Cellulitis Status: Acute Current Visit: Yes Qualifiers: Site of cellulitis: extremity Site of cellulitis of extremity: lower extremity Laterality: left Qualified Code(s): L03.116 - Cellulitis of left lower limb Code(s): L03.90 - Cellulitis, unspecified (3) Bilateral lower extremity edema Status: Chronic Current Visit: Yes Code(s): R60.0 - Localized edema Type of Wound Date of Service: 10/24/19 Chief Complaint: cellulitis and ulcer of left lower leg History of Wound: Patient is a pleasant 63-year-old female who [facility] 10/17/2019 with her for initial evaluation of left lower extremity swelling and ulceration. Patient presented to the emergency room on 10/09/2019 with complaints of left lower extremity swelling and redness. Patient reports that around 09/30/2019 she developed redness, swelling, and blisterlike lesions on her left lower leg, which were becoming bigger in size. At the time of her emergency room evaluation, she had serosanguineous drainage from her left leg. She also noted that at the time of onset around 09/30/2019 she had symptoms of nausea, vomiting, and diarrhea, as well as fever. The symptoms resolved within 36 hours of onset. Her had recently suffered a GI virus prior to her developing these GI symptoms, and she is unsure if they were related to her left lower extremity symptoms. She was admitted for cellulitis, and was discovered to have a small wound on her right foot, which was believed to be the source of infection. Patient was initially started on broad-spectrum antibiotic therapy with vancomycin and Zosyn. During the course of her admission, patient received wound cultures which were negative for MRSA but positive for staph. Infectious disease (Dr. Pretty) was consulted and antibiotics were changed to cefazolin. Bilateral venous duplex ultrasounds were also obtained which were negative for DVT. Patient was discharged from hospital with oral Keflex prescription, which is nearly completed. She has been applying Xeroform gauze to her left lower extremity ulcers daily, and wrapping with ELIA bandage. The patient denies any recurrence of fever, chills, nausea, v omiting, or diarrhea. Denies any signs of infection, including increasing pain, redness, swelling, or purulent/foul-smelling drainage from affected area. Patient states the erythema and swelling of her left lower extremity has greatly improved and is no longer affecting left foot. Patient denies any other significant medical history. Progress of Wound: Significant improvement in excoriation of left lower extremity. Erythema and swelling of left lower extremity have greatly improved as well. Patient reports tolerating Unna boot well, without any complications. Patient is now finished with antibiotic course. The patient denies any fever, chills, nausea, vomiting, or diarrhea. Denies any signs of infection, including increasing pain, redness, swelling, or drainage from affected area. - Physical Exam Vital Signs Temp Pulse Resp BP 97.5 F L 88 18 153/88 H 10/24/19 14:47 10/24/19 14:47 10/24/19 14:47 10/24/19 14:47 General: Alert, Oriented x3, Cooperative, No apparent distress HEENT: Atraumatic, EOMI, Normocephalic Oral: Moist Mucosa Neck: Supple, No JVD, Trachea Midline Lungs: Normal air movement Cardiovascular: Regular rate Extremities: No clubbing, No cyanosis, Capillary Refill Less than 3 Seconds, Diminished Peripheral Pulses, Edema - 1+ pitting edema of left lower extremity, trace edema of right lower extremity, Tenderness - Tenderness to palpation of left lower extremity Skin: Excoriated - Left lower extremity excoriated with improved erythema and swelling. No significant warmth to touch compared to right lower extremity. No open wounds or ulcerations present that require debridement. Moderate amount of dry, scaly skin present over left lower leg/ankle. Wound Measurements and Assessment WC - Nurse 1 - General Ulcer Measurement Start: 10/17/19 14:49 Freq: Status: Active Protocol: Activity Type Activity Date Activity User E-Sign Co-Sign Detail Recorded Client Recorded Date Recorded By Document 10/24/19 14:47 RB [id number] 10/24/19 15:04 RB 10/24/19 14:47 Wound Center Nurse 1 [Ulcer Assessment] #1 LLE Circ -Combined with other wound No -Current Size (cm) - Length 0.1 -Current Size (cm) - Width 0.1 -Current Size (cm) - Depth 0.1 -Total Square Cm 0.01 -Tunneling No -Undermining/Tunneling No -Circular Undermining No -Exudate Amt Small -Exudate Type Serosanguineous -Wound Margin Flat & Intact -Granulation Amt Small (1-33%) -Granulation Quality [place] -Slough/Fibrin Yes -Necrosis Amt Large (67-100%) -Necrotic Tissue Type Adherent Slough -Structure Exposed N/A -Texture (Olga-wound Skin Appearance) Assessed -Moisture (Olga-wound Skin Appearance Assessed ) -Color (Olga-wound Skin Appearance) Assessed -Temperature (Olga-wound Skin No Abnormality Appearance) (Pt Warm) -Tenderness on Palpation (Olga-wound No Skin Appearance) -Ulcer Cleansing Wound Cleanser -Foul Odor after Cleansing No -Anesthetic Used 4% Lidocaine Solution - Nurse 2 - General Ulcer CM Notes Start: 10/17/19 14:49 Freq: Status: Active Protocol: Activity Type Activity Date Activity User E-Sign Co-Sign Detail Recorded Client Recorded Date Recorded By Document 10/24/19 15:26 DV [id number] 10/24/19 15:27 DV 10/24/19 15:26 Wound Center Nurse 2 [Procedure/Treatment] -Time 15:26 -Correct Patient Yes -Correct Side, Site, Position Yes -Correct Procedure No -Procedure Performed No -Wound/Ulcer Outcome Not Healed [See Physician Procedure note for Specifics] Pain Scale: 0-10 Numeric [Pain] -Is Patient Pain Free? Yes Musculoskeletal: Tenderness - Tenderness to palpation/manipulation of left lower extremity Neurological: Neuro grossly intact Psych/Mental Status: Normal Affect, Appropriate Debridement Note Post-Debridement Measurements/Treatment - Nurse 2 - General Ulcer CM Notes Start: 10/17/19 14:49 Freq: Status: Active Protocol: Activity Type Activity Date Activity User E-Sign Co-Sign Detail Recorded Client Recorded Date Recorded By Document 10/17/19 15:57 DV [id number] 10/17/19 16:11 DV Document 10/24/19 15:26 DV [id number] 10/24/19 15:27 DV 10/17/19 10/24/19 15:57 15:26 Wound Center Nurse 2 #1 LLE Circ -Time 16:00 15:26 -Correct Patient Yes Yes -Correct Side, Site, Position Yes Yes -Correct Procedure No No -Procedure Performed No No -Wound/Ulcer Outcome Not Healed Not Healed -Ulcer Cleansing Rinsed/ Irrigated with Saline -Bleeding Controlled with Pressure -Offloading No -Treatment Response Procedure Tolerated Well Pain Scale: 0-10 Numeric Is Patient Pain Free? Yes Yes Assessment/Plan Active Problems Excoriation of left lower leg (Acute) Bilateral lower extremity edema (Chronic) Cellulitis (Acute) Assessment: Excoriation of left lower leg. Cellulitis of left lower leg?improving. Skin ulcer of left lower leg?resolved. Bilateral lower extremity edema. Left plantar foot wound- resolved Plan: No debridement performed today in clinic. Unna boot applied to left lower extremity. At home wound-care instructions: Instructed to keep the Unna boot clean and dry. Contact the wound center if you are experiencing any complications from Unna boot, if you develop numbness, tingling, or discoloration of toes of left foot, or if redness extends above the Unna boot. Off-loading: Keep feet elevated at or above waist level when seated as much as possible. Avoid prolonged standing or dangling of feet. Diet: Patient encouraged to increase protein and vitamin C intake while taking caution to avoid high carbohydrate and/or sugar intake. Labs/cultures/imaging: Labs from hospital admission reviewed. Venous and arterial studies pending. Antibiotics completed (Keflex). Follow-up: Return to the [facility] on 10/27/2019 for a nurse visit to have Unna boot removed and reapplied if necessary. Return to clinic in 1 week for re-evaluation with provider. Return sooner or report to the emergency room should symptoms worsen, or new symptoms arise. Note: [employer] speech recognition communications equipment supervisor software was used to create portions of this document. Sound-alike and misspelled words, as well as other communications equipment supervisor errors may be contained in the documentation. Code Visit Office Visits / Consults: [id number] OV L3 Est
[2019-10-27 13:20] VITALS: BP 194/99; PULSE 106; RESP 16; TEMP 36.2; BMI 44.8
[2019-10-31 14:29] VITALS: BP 177/80; PULSE 96; RESP 18; TEMP 35.9; BMI 44.8
--- NOTE | 2019-10-31 16:46 | PN.PCM_ITS ---
(1) Excoriation of left lower leg Status: Resolved Current Visit: Yes Qualifiers: Encounter type: subsequent encounter Qualified Code(s): S80.812D - Abrasion, left lower leg, subsequent encounter Code(s): S80.812A - Abrasion, left lower leg, initial encounter (2) Cellulitis Status: Resolved Current Visit: Yes Qualifiers: Site of cellulitis: extremity Site of cellulitis of extremity: lower extremity Laterality: left Qualified Code(s): L03.116 - Cellulitis of left lower limb Code(s): L03.90 - Cellulitis, unspecified (3) Bilateral lower extremity edema Status: Chronic Current Visit: Yes Code(s): R60.0 - Localized edema Type of Wound Date of Service: 10/31/19 Chief Complaint: cellulitis and ulcer of left lower leg History of Wound: Patient is a pleasant 63-year-old female who [facility] with her for initial evaluation of left lower extremity swelling and ulceration. Patient presented to the emergency room on 10/09/2019 with complaints of left lower extremity swelling and redness. Patient reports that around 09/30/2019 she developed redness, swelling, and blisterlike lesions on her left lower leg, which were becoming bigger in size. At the time of her emergency room evaluation, she had serosanguineous drainage from her left leg. She also noted that at the time of onset around 09/30/2019 she had symptoms of nausea, vomiting, and diarrhea, as well as fever. The symptoms resolved within 36 hours of onset. Her had recently suffered a GI virus prior to her developing these GI symptoms, and she is unsure if they were related to her left lower extremity symptoms. She was admitted for cellulitis, and was discovered to have a small wound on her right foot, which was believed to be the source of infection. Patient was initially started on broad-spectrum antibiotic therapy with vancomycin and Zosyn. During the course of her admission, patient received wound cultures which were negative for MRSA but positive for staph. Infectious disease (Dr. Pretty) was consulted and antibiotics were changed to cefazolin. Bilateral venous duplex ultrasounds were also obtained which were negative for DVT. Patient was discharged from hospital with oral Keflex prescription, which is nearly completed. She has been applying Xeroform gauze to her left lower extremity ulcers daily, and wrapping with ELIA bandage. The patient denies any recurrence of fever, chills, nausea, vomiting, or diarrhea. Denies any signs of infection, including increasing pain, redness, swelling, or purulent/foul-smelling drainage from affected area. Patient states the erythema and swelling of her left lower extremity has greatly improved and is no longer affecting left foot. Patient denies any other significant medical history. Progress of Wound: Excoriation of left lower extremity resolved. No open wounds or ulcerations to left lower extremity. The patient denies any fever, chills, nausea, vomiting, or diarrhea. Denies any signs of infection, including increasing pain, redness, swelling, or drainage from affected area. - Physical Exam Vital Signs Temp Pulse Resp BP 96.6 F L 96 18 177/80 H 10/31/19 14:29 10/31/19 14:29 10/31/19 14:29 10/31/19 14:29 General: Alert, Oriented x3, Cooperative HEENT: Atraumatic, EOMI, Normocephalic Oral: Moist Mucosa Neck: Supple, No JVD, Trachea Midline Lungs: Normal air movement Cardiovascular: Regular rate Extremities: No clubbing, No cyanosis, Capillary Refill Less than 3 Seconds, No Calf Tenderness, Diminished Peripheral Pulses, Edema - Trace edema bilateral lower extremities. Skin: No breakdown, - - Excoriation resolved and left lower extremity. No open wounds or ulcerations present. Dry, scaly skin of left lower extremity is resolved. Hemosiderin staining of left lower extremity. Wound Measurements and Assessment WC - Nurse 1 - General Ulcer Measurement Start: 10/17/19 14:49 Freq: Status: Active Protocol: Activity Type Activity Date Activity User E-Sign Co-Sign Detail Recorded Client Recorded Date Recorded By Document 10/31/19 14:29 [id number] 10/31/19 14:38 KEVAN 10/31/19 14:29 Wound Center Nurse 1 [Ulcer Assessment] #1 LLE Circ -Combined with other wound No -Current Size (cm) - Length 0 -Current Size (cm) - Width 0 -Current Size (cm) - Depth 0 -Total Square Cm 0 -Photo Taken Yes -Epithelialization Large 67-100% -Tunneling No -Undermining/Tunneling No -Circular Undermining No [Edema Assessment] -Lower Limb Edema Present Yes -Left Calf (cm) 48.5 -Left Ankle (cm) 27.5 - Nurse 2 - General Ulcer CM Notes Start: 10/17/19 14:49 Freq: Status: Active Protocol: Activity Type Activity Date Activity User E-Sign Co-Sign Detail Recorded Client Recorded Date Recorded By Document 10/31/19 14:47 DV [id number] 10/31/19 14:49 DV 10/31/19 14:47 Wound Center Nurse 2 [Procedure/Treatment] #1 LLE Circ -Time 14:48 -Correct Patient Yes -Correct Side, Site, Position Yes -Correct Procedure No -Procedure Performed No -Post Debridement Size (cm) - Length 0 -Post Debridement Size (cm) - Width 0 -Post Debridement Size (cm) - Depth 0 -Total Square Cm 0 -Wound/Ulcer Outcome Healed- Epithelialized [See Physician Procedure note for Specifics] Pain Scale: 0-10 Numeric [Pain] -Is Patient Pain Free? Yes Musculoskeletal: No Tenderness to Palpation of Joints or Extremities Neurological: Neuro grossly intact Psych/Mental Status: Normal Affect, Appropriate Debridement Note Post-Debridement Measurements/Treatment - Nurse 2 - General Ulcer CM Notes Start: 10/17/19 14:49 Freq: Status: Active Protocol: Activity Type Activity Date Activity User E-Sign Co-Sign Detail Recorded Client Recorded Date Recorded By Document 10/17/19 15:57 DV [id number] 10/17/19 16:11 DV Document 10/24/19 15:26 DV [id number] 10/24/19 15:27 DV Document 10/31/19 14:47 DV [id number] 10/31/19 14:49 DV 10/17/19 10/24/19 10/31/19 15:57 15:26 14:47 Wound Center Nurse 2 #1 LLE Circ -Time 16:00 15:26 14:48 -Correct Patient Yes Yes Yes -Correct Side, Site, Position Yes Yes Yes -Correct Procedure No No No -Procedure Performed No No No -Post Debridement Size (cm) - Length 0 -Post Debridement Size (cm) - Width 0 -Post Debridement Size (cm) - Depth 0 -Total Square Cm 0 -Wound/Ulcer Outcome Not Healed Not Healed Healed- Epithelialized -Ulcer Cleansing Rinsed/ Irrigated with Saline -Bleeding Controlled with Pressure -Offloading No -Treatment Response Procedure Tolerated Well Pain Scale: 0-10 Numeric Is Patient Pain Free? Yes Yes Yes Assessment/Plan Active Problems Bilateral lower extremity edema (Chronic) Assessment: Excoriation of left lower leg- resolved. Cellulitis of left lower leg?resolved. Skin ulcer of left lower leg?resolved. Bilateral lower extremity edema. Left plantar foot wound- resolved Plan: Excoriation of left lower extremity resolved. No open wounds or ulcerations. Dry, scaly skin of left lower extremity has also resolved. Patient is discharged from the wound healing center today 10/31/2019. Daily use of compression stockings encouraged in managing chronic bilateral lower extremity edema. Patient instructed to follow-up with PCP as needed and as instructed. Note: [employer] speech recognition smalltalk developer software was used to create portions of this document. Sound-alike and misspelled words, as well as other smalltalk developer errors may be contained in the documentation. Code Visit Office Visits / Consults: 11568 OV L3 Est
== END 2019-11-10 23:59 ==
LOC: WC 14:30
PROVIDERS: Family Provider Family Medicine; PCP Family Medicine; Visit Provider Nurse Practitioner Family
DX: S80.812A Abrasion, left lower leg, initial encounter (principal); X58.XXXA Exposure to other specified factors, initial encounter; R60.0 Localized edema; Z87.891 Personal history of nicotine dependence; L03.116 Cellulitis of left lower limb
CPT/HCPCS: 29580; 99212; 99213; 99214; G0463

== ENCOUNTER 2020-12-17 11:47 | Outpatient (RCR) | payer MEDICARE, SELFPAY ==
[2020-12-17] MEDS: COVID-19 VACC, MRNA(PFIZER)/PF 30 MCG/0.3 ML SYRINGE IM (13:41)
[2021-01-07] MEDS: COVID-19 VACC, MRNA(PFIZER)/PF 30 MCG/0.3 ML SYRINGE IM (13:30)
== END 2021-03-18 23:59 ==
LOC: IMMUN 11:47
PROVIDERS: PCP Nurse Practitioner Family; Visit Provider Family Medicine
DX: Z23 Encounter for immunization (principal)
CPT/HCPCS: 0001A; 0002A; 91300

== ENCOUNTER → 2021-08-01 | Outpatient (CLI) | payer MEDICARE, OTHER, SELFPAY ==
--- NOTE | 2021-08-01 | HIP_PTH ---
PATIENT: EDER SIDHU LOC: [facility]#:[id number] AGE/SX: 65/F ROOM: RE08/01/[address]: Dr. Bahman Salas MD : 1955 BED: DIS: 08/01/2021 SPEC #: [id number] RECD: 08/01/21 14:53 STATUS: STEPAN REQ #: [id number] TROY: 08/01/21 00:[address]: Bahman Salas DEPT: SURGICAL PATHOLOGY RECD BY: Ton Tomlin ENTERED: 08/04/21 08:04 SP TYPE: TOTAL HIP OTHR DR: Ryan Ling, B[employer] INSPECTOR-[employer] [facility] Tissues: Hip, NOS Procedures: Decalcification bone/plaque Surgery Specimen Level IV HEADER OPERATION: Right total hip arthroplasty PRE-OP DIAGNOSIS: Severe right hip primary osteoarthritis TISSUE SUBMITTED: Bone right hip MICROSCOPIC DIAGNOSIS Bone and tissue of right hip, total hip resection: Severe degenerative joint disease. AM:mark anthony 08/06/2021 MICROSCOPIC DESCRIPTION Slides are reviewed. GROSS DESCRIPTION Received is one container labeled with the patient's name and designated femoral head. The specimen consists of a deformed femoral head measuring 5 x 4.5 x 4 cm and portion of femoral neck measures up to 1.5 cm in length. The articular surface displays prominent osteophyte formation, eburnation and bone erosion. Also present in the specimen container are multiple irregular fragments of bone reamings and pink-yellow soft tissue measuring in aggregate 5 x 4 x 1 cm. Bench Grinder sections are submitted in two cassettes after decalcification as follows: 1 ? bone reamings, 2 ? femoral head. / SJ:mark anthony 08/04/21 TC:3 CPT: 48826, 32879
== END | disposition home or self-care (01) ==
LOC: LABSPEC 15:09
PROVIDERS: PCP Nurse Practitioner Family; Referring Provider Orthopaedic Surgery; Visit Provider Orthopaedic Surgery
DX: M16.11 Unilateral primary osteoarthritis, right hip (principal)
CPT/HCPCS: 88305; 88311